=== PATIENT | male | born 1980 | race Caucasian/White ===

== ENCOUNTER 2024-05-19 12:40 | Outpatient (CLI) | payer BC, OTHER | END 2024-05-19 23:59 | disposition home or self-care (01) | LOC: RAD 12:40 | PROVIDERS: ATTEND Pediatrics Sports Medicine | DX: M19.021 Primary osteoarthritis, right elbow (principal); M25.821 Other specified joint disorders, right elbow; M25.531 Pain in right wrist | CPT/HCPCS: 73200 ==